=== PATIENT | female | born 1960 | race Caucasian/White ===

== ENCOUNTER 2018-07-03 20:33 | Emergency (ER) | payer BC, OTHER ==
[~2018-07-03] VITALS: Ht 182.9 cm; Wt 73.9 kg
[2018-07-03 21:09] LABS: BASOPHILS # (AUTO) 0.1 (0.0-0.1); BASOPHILS % 0.9 % (0.0-1.0); EOSINOPHILS # (AUTO) 1.1 (0.0-0.4); EOSINOPHILS % 16.7 % (0.0-6.0); HEMATOCRIT 40.6 % (34.2-44.1); HEMOGLOBIN 13.6 g/dL (12.0-16.0); LYMPHOCYTES # (AUTO) 2.2 (1.0-3.2); LYMPHOCYTES % 32.6 % (18.0-39.1); MEAN CORPUSCULAR HEMOGLOBIN 27.8 pg (28-32); MEAN CORPUSCULAR HGB CONC 33.5 g/dL (31-35); MEAN CORPUSCULAR VOLUME 82.9 fL (81-99); MONOCYTES # (AUTO) 0.5 (0.2-0.8); MONOCYTES % 8.1 % (4.4-11.3); NEUTROPHILS # (AUTO) 2.8 (2.1-6.9); NEUTROPHILS % 41.5 % (38.7-80.0); PLATELET COUNT 223 x10e3/uL (140-360); RED CELL DISTRIBUTION WIDTH 13.7 % (11.7-14.4)
[2018-07-03 21:16] LABS: INR 0.92; PROTHROMBIN TIME 12.9 seconds (11.9-14.5)
[2018-07-03 21:17] LABS: PARTIAL THROMBOPLASTIN TIME 30.1 seconds (23.8-35.5)
[2018-07-03 21:24] LABS: ALANINE AMINOTRANSFERASE 51 IU/L (0-55); ALBUMIN 4.1 g/dL (3.5-5.0); ALKALINE PHOSPHATASE 97 IU/L (40-150); ANION GAP 14.5 mmol/L (8-16); BLOOD UREA NITROGEN 14 mg/dL (7-26); BUN/CREATININE RATIO 11 (6-25); CALCIUM 9.8 mg/dL (8.4-10.2); CARBON DIOXIDE 25 mmol/L (22-29); CHLORIDE 105 mmol/L (98-107); CREATININE, SERUM 1.32 mg/dL (0.57-1.11); EST GLOMERULAR FILTRATION RATE 41 ML/MIN (60-); GLUCOSE 103 mg/dL (74-118); POTASSIUM 3.5 mmol/L (3.5-5.1); SODIUM 141 mmol/L (136-145)
--- NOTE | 2018-07-03 21:34 | Diagnostic Imaging Report ---
EXAMINATION: PA and lateral views of the chest. COMPARISON: None CLINICAL HISTORY: Chest pain DISCUSSION: Lines/tubes: None. Lungs: Lungs are mildly hyperinflated.. Ill-defined patchy opacity in the lingula. The rest of the lungs is clear. No pulmonary edema. Pleura: There is no pleural effusion or pneumothorax. Heart and mediastinum: Cardiomediastinal silhouette is unremarkable. Pulmonary vasculature is normal. Atherosclerotic calcification of the thoracic aorta. Bones and soft tissues: No acute bony abnormalities. IMPRESSION: 1. Ill-defined patchy opacity in the lingula, which may represent atelectasis or developing pneumonia in the appropriate clinical setting. Recommend follow-up chest PA and lateral in 4-6 weeks after appropriate treatment to document resolution. Signed by: Dr. Valdez Hinojosa M.D. on 07/03/2018 9:31 PM
[2018-07-03 21:36] LABS: CREATINE KINASE 34 IU/L (29-168)
[2018-07-03 22:14] VITALS: BP 137/84
== END 2018-07-03 22:15 | disposition home or self-care (01) ==
LOC: ER 20:33
DX: R07.89 Other chest pain (principal)
CPT/HCPCS: 36415; 71046; 80053; 82550; 82553; 84484; 85025; 85610; 85730; 93005; 99284

== ENCOUNTER 2023-03-15 09:24 | Emergency (ER) | payer OTHER ==
[~2023-03-15] VITALS: Ht 182.9 cm; Wt 73.9 kg
[2023-03-15] MEDS ORDERED: ONDANSETRON HCL INJ 2MG/ML 2ML 2 MG/ML VIAL IV STA (09:28)
[2023-03-15 09:47] LABS: BASOPHILS # (AUTO) 0.1 (0.0-0.1); BASOPHILS % 0.6 % (0.0-1.0); EOSINOPHILS # (AUTO) 0.1 (0.0-0.4); HEMATOCRIT 36.5 % (34.2-44.1); HEMOGLOBIN 12.4 g/dL (12.0-16.0); LYMPHOCYTES # (AUTO) 1.4 (1.0-3.2); LYMPHOCYTES % 13.6 % (18.0-39.1); MEAN CORPUSCULAR VOLUME 85.5 fL (81-99); MONOCYTES # (AUTO) 0.9 (0.2-0.8); MONOCYTES % 8.5 % (4.4-11.3); PLATELET COUNT 143 x10e3/uL (140-360); RED BLOOD COUNT 4.27 x10e6/uL (3.6-5.1); RED CELL DISTRIBUTION WIDTH 12.9 % (11.7-14.4); WHITE BLOOD COUNT 10.51 x10e3/uL (4.8-10.8)
[2023-03-15] MEDS ORDERED: LACTATED RINGER'S 1,000 ML IV ONE (10:00)
[2023-03-15 10:20] LABS: ALBUMIN 3.5 g/dL (3.5-5.0); ALBUMIN/GLOBULIN RATIO 0.8 (0.8-2.0); ANION GAP 14.8 mmol/L (8-16); BILIRUBIN,TOTAL 1.5 mg/dL (0.2-1.2); CALCIUM 10.2 mg/dL (8.4-10.2); CREATININE, SERUM 1.13 mg/dL (0.57-1.11); POTASSIUM 3.8 mmol/L (3.5-5.1); TOTAL PROTEIN 7.9 g/dL (6.5-8.1)
[2023-03-15 11:15] LABS: CLARITY,URINE CLEAR (CLEAR); COLOR,URINE YELLOW (YELLOW); LEUKOCYTE ESTERASE ,URINE NEGATIVE (NEGATIVE); NITRITE,URINE NEGATIVE (NEGATIVE); PH,URINE 5.5 (5 - 7)
[2023-03-15 11:16] LABS: BILIRUBIN,URINE NEGATIVE (NEGATIVE); GLUCOSE, URINE NEGATIVE (NEGATIVE); KETONES,URINE NEGATIVE (NEGATIVE); PROTEIN,URINE DIPSTICK NEGATIVE (NEGATIVE); URINE UROBILINOGEN 0.2 mg/dL (0.2 - 1)
[2023-03-15 11:23] LABS: EPITHELIAL CELLS,URINE FEW /LPF
[2023-03-15 11:25] LABS: RBC,URINE 0-5 /HPF (0-5)
[2023-03-15 11:26] LABS: BACTERIA,URINE FEW /HPF
[2023-03-15 11:28] LABS: WBC,URINE (MAN) 0-5 /HPF (0-5)
[2023-03-15] MEDS ORDERED: IOPAMIDOL 370 MG/ML 100 ML INFUS..BTL INJ ONE (11:32)
[2023-03-15] MEDS ORDERED: VANCOCIN HCL250 MG PO (12:21)
[2023-03-15] MEDS ORDERED: VANCOMYCIN 250MG/5ML ORAL SOLN PO ONE (12:30)
[2023-03-15 13:33] VITALS: O2SAT 100
== END 2023-03-15 13:34 | disposition home or self-care (01) ==
LOC: ER 09:30
DX: R50.9 Fever, unspecified (principal); A04.72 Enterocolitis due to Clostridium difficile, not specified as recurrent; R19.7 Diarrhea, unspecified; R94.31 Abnormal electrocardiogram [ECG] [EKG]
CPT/HCPCS: 36415; 74177; 80053; 81001; 85025; 87086; 93005; 99285; C9113; J2405; J7121; Q9967; 87186

== ENCOUNTER 2023-11-20 21:34 | Emergency (ER) | payer OTHER ==
[~2023-11-20] VITALS: Ht 182.9 cm; Wt 73.9 kg
[~2023-11-20 21:34] MED LIST: CIPRO500 MG PO; METRONIDAZOLE500 MG PO; VANCOCIN HCL250 MG PO
[2023-11-20] MEDS: SODIUM CHLORIDE 0.9% 1000ML 1,000 ML IV STA (21:59)
[2023-11-20 22:08] LABS: BASOPHILS % 0.4 % (0.0-1.0); EOSINOPHILS # (AUTO) 0.2 (0.0-0.4); EOSINOPHILS % 1.5 % (0.0-6.0); HEMATOCRIT 36.9 % (34.2-44.1); HEMOGLOBIN 12.5 g/dL (12.0-16.0); LYMPHOCYTES # (AUTO) 1.8 (1.0-3.2); LYMPHOCYTES % 16.9 % (18.0-39.1); MEAN CORPUSCULAR HEMOGLOBIN 29.1 pg (28-32); MEAN CORPUSCULAR HGB CONC 33.9 g/dL (31-35); MEAN CORPUSCULAR VOLUME 85.8 fL (81-99); MONOCYTES # (AUTO) 0.8 (0.2-0.8); MONOCYTES % 7.8 % (4.4-11.3); NEUTROPHILS # (AUTO) 7.7 (2.1-6.9); PLATELET COUNT 139 x10e3/uL (140-360); RED CELL DISTRIBUTION WIDTH 13.3 % (11.7-14.4)
[2023-11-20 22:11] LABS: CLARITY,URINE SL CLOUDY (CLEAR); COLOR,URINE YELLOW (YELLOW); LEUKOCYTE ESTERASE ,URINE 1+ (NEGATIVE); NITRITE,URINE NEGATIVE (NEGATIVE); PH,URINE 7.5 (5 - 7); PROTEIN,URINE DIPSTICK NEGATIVE (NEGATIVE)
[2023-11-20 22:12] LABS: BILIRUBIN,URINE NEGATIVE (NEGATIVE); GLUCOSE, URINE NEGATIVE (NEGATIVE); KETONES,URINE NEGATIVE (NEGATIVE); URINE UROBILINOGEN 0.2 mg/dL (0.2 - 1)
[2023-11-20 22:15] LABS: BACTERIA,URINE MANY /HPF; EPITHELIAL CELLS,URINE FEW /LPF; RENAL EPITHELIAL CELLS,URINE FEW; TRANSITIONAL EPI CELLS,URINE MODERATE
[2023-11-20 22:21] LABS: ALBUMIN 3.8 g/dL (3.5-5.0); ANION GAP 14.7 mmol/L (8-16); BILIRUBIN,TOTAL 0.8 mg/dL (0.2-1.2); CREATININE, SERUM 1.33 mg/dL (0.57-1.11); POTASSIUM 3.7 mmol/L (3.5-5.1); TOTAL PROTEIN 7.8 g/dL (6.5-8.1)
[2023-11-20 22:25] LABS: TROPONIN I 0.029 ng/mL (0-0.300)
[2023-11-20] MEDS ORDERED: IOPAMIDOL 370 MG/ML 100 ML INFUS..BTL INJ ONE (22:43)
[2023-11-21] MEDS ORDERED: METRONIDAZOLE500 MG PO (00:22)
[2023-11-21 00:33] VITALS: PULSE 64; RESP 22; TEMP 98.3
[2023-11-21 00:35] VITALS: BP 107/63; PULSE 61; RESP 22; TEMP 98.3; O2SAT 98
== END 2023-11-21 00:41 | disposition home or self-care (01) ==
LOC: ER 21:38
DX: R50.9 Fever, unspecified (principal); N39.0 Urinary tract infection, site not specified; K62.89 Other specified diseases of anus and rectum; I10 Essential (primary) hypertension; N28.9 Disorder of kidney and ureter, unspecified; K21.9 Gastro-esophageal reflux disease without esophagitis; M41.9 Scoliosis, unspecified
CPT/HCPCS: 36415; 74177; 80053; 81001; 82550; 83690; 84484; 85025; 93005; 99284; J7030; Q9967

== ENCOUNTER 2024-02-11 15:21 | Inpatient (IN) | payer OTHER ==
[~2024-02-11] VITALS: Ht 180.3 cm; Wt 71.2 kg
[2024-02-11 16:30] LABS: BASOPHILS # (AUTO) 0.1 (0.0-0.1); BASOPHILS % 0.5 % (0.0-1.0); EOSINOPHILS % 0.2 % (0.0-6.0); HEMATOCRIT 38.7 % (34.2-44.1); HEMOGLOBIN 12.7 g/dL (12.0-16.0); LYMPHOCYTES # (AUTO) 1.5 (1.0-3.2); LYMPHOCYTES % 8.8 % (18.0-39.1); MEAN CORPUSCULAR HEMOGLOBIN 28.8 pg (28-32); MEAN CORPUSCULAR HGB CONC 32.8 g/dL (31-35); MEAN CORPUSCULAR VOLUME 87.8 fL (81-99); MONOCYTES # (AUTO) 1.2 (0.2-0.8); MONOCYTES % 6.9 % (4.4-11.3); NEUTROPHILS # (AUTO) 14.1 (2.1-6.9); PLATELET COUNT 106 x10e3/uL (140-360); RED BLOOD COUNT 4.41 x10e6/uL (3.6-5.1); RED CELL DISTRIBUTION WIDTH 13.1 % (11.7-14.4)
[2024-02-11 16:42] LABS: INR 1.12
[2024-02-11 16:42] LABS: CLARITY,URINE CLOUDY (CLEAR); COLOR,URINE YELLOW (YELLOW); PH,URINE 6 (5 - 7)
[2024-02-11 16:43] LABS: PARTIAL THROMBOPLASTIN TIME 32.7 seconds (23.8-35.5)
[2024-02-11 16:43] LABS: BILIRUBIN,URINE NEGATIVE (NEGATIVE); GLUCOSE, URINE NEGATIVE (NEGATIVE); KETONES,URINE NEGATIVE (NEGATIVE); LEUKOCYTE ESTERASE ,URINE TRACE (NEGATIVE); NITRITE,URINE NEGATIVE (NEGATIVE); PROTEIN,URINE DIPSTICK 1+ (NEGATIVE); URINE UROBILINOGEN 0.2 mg/dL (0.2 - 1)
[2024-02-11 16:44] LABS: RBC,URINE 0-5 /HPF (0-5); WBC,URINE (MAN) 0-5 /HPF (0-5)
[2024-02-11 16:45] LABS: AMORPHOUS SEDIMENT,URINE FEW (FEW); BACTERIA,URINE MANY /HPF; COARSE GRANULAR CASTS,URINE 0 (0); EPITHELIAL CELLS,URINE MODERATE /LPF
[2024-02-11 16:50] LABS: ALBUMIN/GLOBULIN RATIO 0.7 (0.8-2.0); BILIRUBIN,TOTAL 1.3 mg/dL (0.2-1.2); CALCIUM 9.4 mg/dL (8.4-10.2); CREATININE, SERUM 1.4 mg/dL (0.57-1.11); MAGNESIUM 1.6 MG/DL (1.3-2.1); TOTAL PROTEIN 7.4 g/dL (6.5-8.1)
[2024-02-11 16:55] LABS: TROPONIN I 0.009 ng/mL (0-0.300)
[2024-02-11] MEDS ORDERED: IOPAMIDOL 370 MG/ML 100 ML INFUS..BTL INJ ONE (18:59)
[2024-02-11] MEDS: SODIUM CHLORIDE 0.9% 1000ML 1,000 ML IV STA (19:07)
[2024-02-11] MEDS: SODIUM CHLORIDE 0.9% 500ML 500 ML IV ONE (19:08)
[2024-02-11] MEDS: METRONIDAZOLE 500MG/NS 100ML 100 ML IV SCH (19:08)
[2024-02-11] MEDS: ONDANSETRON HCL INJ 2MG/ML 2ML 2 MG/ML VIAL IV STA (19:13)
[2024-02-11] MEDS: SODIUM CHLORIDE 0.9% 1000ML 1,000 ML IV SCH (20:40)
[2024-02-11] MEDS: SODIUM CHLORIDE 0.9% 1000ML 1,000 ML IV ONE (21:22)
[2024-02-11] MEDS: ONDANSETRON HCL INJ 2MG/ML 2ML 2 MG/ML VIAL IV PRN (23:56)
[2024-02-11] MEDS: Morphine 2mg Syringe 2 MG/ML SYR IV PRN (23:57)
[2024-02-12 04:00] VITALS: PULSE 87; RESP 29; TEMP 99
[2024-02-12 05:24] LABS: BASOPHILS # (AUTO) 0.1 (0.0-0.1); BASOPHILS % 0.5 % (0.0-1.0); EOSINOPHILS # (AUTO) 0.1 (0.0-0.4); EOSINOPHILS % 0.6 % (0.0-6.0); HEMATOCRIT 34.6 % (34.2-44.1); HEMOGLOBIN 11.1 g/dL (12.0-16.0); LYMPHOCYTES # (AUTO) 1.2 (1.0-3.2); LYMPHOCYTES % 9.8 % (18.0-39.1); MEAN CORPUSCULAR HEMOGLOBIN 29.3 pg (28-32); MEAN CORPUSCULAR HGB CONC 32.1 g/dL (31-35); MEAN CORPUSCULAR VOLUME 91.3 fL (81-99); MONOCYTES % 7.7 % (4.4-11.3); RED BLOOD COUNT 3.79 x10e6/uL (3.6-5.1); RED CELL DISTRIBUTION WIDTH 13.2 % (11.7-14.4); WHITE BLOOD COUNT 12.29 x10e3/uL (4.8-10.8)
[2024-02-12 05:26] LABS: PLATELET COUNT 95 x10e3/uL (140-360)
[2024-02-12 05:38] LABS: ALBUMIN 2.5 g/dL (3.5-5.0); ALBUMIN/GLOBULIN RATIO 0.6 (0.8-2.0); ANION GAP 18.1 mmol/L (8-16); BILIRUBIN,TOTAL 1.1 mg/dL (0.2-1.2); CALCIUM 8.4 mg/dL (8.4-10.2); CREATININE, SERUM 1.29 mg/dL (0.57-1.11); TOTAL PROTEIN 6.5 g/dL (6.5-8.1)
[2024-02-12 05:39] LABS: POTASSIUM 3.1 mmol/L (3.5-5.1)
[2024-02-12 08:29] LABS: PLATELET MORPHOLOGY COMMENT FEW EDTA CLUMPING; RBC MORPHOLOGY COMMENT NORMAL
[2024-02-12 08:30] LABS: PLATELET ESTIMATE MODERATELY DECREASED
[2024-02-12 16:45] VITALS: BP 114/71; PULSE 86; RESP 18; TEMP 99; O2SAT 95
[2024-02-12 17:09] VITALS: BP_SYST 104; PULSE 85; RESP 18; TEMP 98.4; O2SAT 97
[2024-02-12] MEDS: POTASSIUM CHLORIDE 20 MEQ TAB CR PO STA (18:22)
[2024-02-12 20:00] VITALS: BP 90/58; PULSE 90; RESP 18; TEMP 100; O2SAT 100
[2024-02-12 21:00] VITALS: BP 90/58; PULSE 90; RESP 18; TEMP 100; O2SAT 100
[2024-02-13] VITALS (9 sets, daily range): BP systolic 100–140; BP diastolic 55–91; PULSE 88–97; RESP 18–21; TEMP 97.6–99.5; O2SAT 98–100
[2024-02-13 06:46] LABS: BASOPHILS # (AUTO) 0.1 (0.0-0.1); BASOPHILS % 0.6 % (0.0-1.0); EOSINOPHILS # (AUTO) 0.4 (0.0-0.4); EOSINOPHILS % 4.9 % (0.0-6.0); HEMATOCRIT 28.8 % (34.2-44.1); LYMPHOCYTES # (AUTO) 0.5 (1.0-3.2); LYMPHOCYTES % 5.5 % (18.0-39.1); MEAN CORPUSCULAR HEMOGLOBIN 29.1 pg (28-32); MONOCYTES # (AUTO) 0.6 (0.2-0.8); MONOCYTES % 6.8 % (4.4-11.3); NEUTROPHILS # (AUTO) 6.6 (2.1-6.9); NEUTROPHILS % 81.6 % (38.7-80.0); PLATELET COUNT 99 x10e3/uL (140-360); RED BLOOD COUNT 3.27 x10e6/uL (3.6-5.1); WHITE BLOOD COUNT 8.12 x10e3/uL (4.8-10.8)
[2024-02-13 06:54] LABS: HEMOGLOBIN 9.5 g/dL (12.0-16.0); MEAN CORPUSCULAR VOLUME 88.1 fL (81-99)
[2024-02-13 07:04] LABS: ALBUMIN 2.3 g/dL (3.5-5.0); ALBUMIN/GLOBULIN RATIO 0.6 (0.8-2.0); ANION GAP 12.2 mmol/L (8-16); BILIRUBIN,TOTAL 0.9 mg/dL (0.2-1.2); CALCIUM 8.5 mg/dL (8.4-10.2); CHOL/HDL RATIO 4.9 (3.0-3.6); CREATININE, SERUM 1.02 mg/dL (0.57-1.11); MAGNESIUM 1.4 MG/DL (1.3-2.1); TOTAL PROTEIN 6.2 g/dL (6.5-8.1)
[2024-02-13 07:08] LABS: POTASSIUM 3.2 mmol/L (3.5-5.1)
[2024-02-13 07:27] LABS: THYROID STIMULATING HORMONE 5.381 uIU/mL (0.350-4.940)
[2024-02-13] MEDS ORDERED: LEVOTHYROXINE88 MCG PO (14:47)
[2024-02-13] MEDS ORDERED: DICYCLOMINE HCL10 MG PO (14:47)
[2024-02-13] MEDS ORDERED: NEURONTIN300 MG PO (14:47)
[2024-02-13] MEDS ORDERED: AZO CRANBERRY250 MG PO (14:48)
[2024-02-14] VITALS (7 sets, daily range): BP systolic 118–139; BP diastolic 55–72; PULSE 81–94; RESP 18–22; TEMP 97.8–98.4; O2SAT 97–100
[2024-02-14] MEDS: LEVOTHYROXINE SODIUM 88 MCG TAB PO SCH (06:25)
[2024-02-14] MEDS: POTASSIUM CHLORIDE 20 MEQ TAB CR PO ONE (09:19)
[2024-02-14] MEDS: MAGNESIUM SULFATE 2GM/50ML 50 ML IV ONE (09:20)
[2024-02-14 10:42] LABS: CALCIUM 9.1 mg/dL (8.4-10.2); CREATININE, SERUM 1.03 mg/dL (0.57-1.11)
[2024-02-15] VITALS: BP 123/63; PULSE 91; RESP 19; TEMP 98.8; O2SAT 99
[2024-02-15 04:00] VITALS: BP 125/57; PULSE 101; RESP 21; TEMP 98.7; O2SAT 100
[2024-02-15 07:20] LABS: ANION GAP 13.1 mmol/L (8-16); CALCIUM 8.4 mg/dL (8.4-10.2); CREATININE, SERUM 0.99 mg/dL (0.57-1.11); MAGNESIUM 1.8 MG/DL (1.3-2.1); PHOSPHORUS 2.6 MG/DL (2.3-4.7)
[2024-02-15 07:29] LABS: POTASSIUM 3.1 mmol/L (3.5-5.1)
[2024-02-15] MEDS: POTASSIUM CHLORIDE 10MEQ EA PO ONE (08:41)
[2024-02-15 12:19] VITALS: BP 107/62; PULSE 70; RESP 20; TEMP 98.3; O2SAT 98
[2024-02-15 16:29] VITALS: BP 126/78; PULSE 90; RESP 21; TEMP 98.2; O2SAT 98
[2024-02-15] MEDS: LACTOBACILLUS ACIDOPHILUS CAPSULE PO SCH (16:58)
[2024-02-15 20:00] VITALS: BP 115/59; PULSE 87; RESP 18; TEMP 98; O2SAT 100
[2024-02-16] VITALS: BP 114/56; PULSE 85; RESP 20; TEMP 98.7; O2SAT 98
[2024-02-16 04:00] VITALS: BP 113/54; PULSE 79; RESP 17; TEMP 98.4; O2SAT 100
[2024-02-16 06:39] LABS: BASOPHILS # (AUTO) 0.1 (0.0-0.1); BASOPHILS % 0.7 % (0.0-1.0); EOSINOPHILS # (AUTO) 0.4 (0.0-0.4); EOSINOPHILS % 5.7 % (0.0-6.0); HEMATOCRIT 31.4 % (34.2-44.1); LYMPHOCYTES # (AUTO) 1.3 (1.0-3.2); LYMPHOCYTES % 18.5 % (18.0-39.1); MEAN CORPUSCULAR HEMOGLOBIN 28.4 pg (28-32); MEAN CORPUSCULAR HGB CONC 31.8 g/dL (31-35); MEAN CORPUSCULAR VOLUME 89.2 fL (81-99); MONOCYTES # (AUTO) 0.7 (0.2-0.8); MONOCYTES % 9.7 % (4.4-11.3); NEUTROPHILS # (AUTO) 4.5 (2.1-6.9); NEUTROPHILS % 64.8 % (38.7-80.0); PLATELET COUNT 155 x10e3/uL (140-360); RED BLOOD COUNT 3.52 x10e6/uL (3.6-5.1); RED CELL DISTRIBUTION WIDTH 13.3 % (11.7-14.4); WHITE BLOOD COUNT 7.01 x10e3/uL (4.8-10.8)
[2024-02-16 06:55] LABS: ANION GAP 13.6 mmol/L (8-16); CREATININE, SERUM 0.9 mg/dL (0.57-1.11); MAGNESIUM 1.8 MG/DL (1.3-2.1); POTASSIUM 3.6 mmol/L (3.5-5.1)
[2024-02-16 07:41] VITALS: BP 129/53; PULSE 80; RESP 18; TEMP 98.4; O2SAT 98
[2024-02-16 07:50] VITALS: BP 129/53; PULSE 80; RESP 18; TEMP 98.4; O2SAT 98
[2024-02-16 11:23] VITALS: BP 104/60; PULSE 86; RESP 19; TEMP 97.7; O2SAT 100
[2024-02-16] MEDS ORDERED: QUESTRAN PACKET4 GM PO (12:56)
[2024-02-16] MEDS ORDERED: ONDANSETRON ODT4 MG PO (12:56)
[2024-02-16] MEDS ORDERED: METRONIDAZOLE500 MG PO (12:56)
[2024-02-16] MEDS ORDERED: VITAMIN C500 M2 PO (12:56)
== END 2024-02-16 14:49 | disposition home or self-care (01) | DRG 872 ==
LOC: ER 15:31 → ERHOLD 18:55 → MED/SURG3 02-12 17:00
PROVIDERS: ADMIT Internal Medicine; ATTEND Internal Medicine
PROC: 3E0333Z Introduction of Anti-inflammatory into Peripheral Vein, Percutaneous Approach (ICD-10-PCS; principal; 2024-02-11)
DX: A41.9 Sepsis, unspecified organism (principal); N39.0 Urinary tract infection, site not specified; Z16.11 Resistance to penicillins; R65.20 Severe sepsis without septic shock; I12.9 Hypertensive chronic kidney disease with stage 1 through stage 4 chronic kidney disease, or unspecified chronic kidney disease; K52.9 Noninfective gastroenteritis and colitis, unspecified; N18.30 Chronic kidney disease, stage 3 unspecified; D63.1 Anemia in chronic kidney disease; E83.42 Hypomagnesemia; E87.6 Hypokalemia; D69.59 Other secondary thrombocytopenia; K21.9 Gastro-esophageal reflux disease without esophagitis; B96.20 Unspecified Escherichia coli [E. coli] as the cause of diseases classified elsewhere; B96.1 Klebsiella pneumoniae [K. pneumoniae] as the cause of diseases classified elsewhere; B95.2 Enterococcus as the cause of diseases classified elsewhere; M41.9 Scoliosis, unspecified; F41.9 Anxiety disorder, unspecified; E03.9 Hypothyroidism, unspecified; Z90.49 Acquired absence of other specified parts of digestive tract; Z90.710 Acquired absence of both cervix and uterus; Z88.1 Allergy status to other antibiotic agents
CPT/HCPCS: 36415; 70450; 71045; 74177; 80048; 80053; 80061; 81001; 82550; 83036; 83605; 83735; 83993; 84100; 84443; 84484; 85025; 85610; 85730; 87040; 87045; 87086; 87186; 87324; 87449; 93005; 99252; 99285; J2270; J2405; J2470; J2543; J3475; J7030; J7040; Q9967